=== PATIENT | female | born 1945 | race Caucasian/White ===

== ENCOUNTER → 2017-11-19 | Outpatient (CLI) | payer OTHER ==
[~2017-11-19] MED LIST: CARVEDILOL12.5 MG PO; CENTRUM SILVER1 EAC4 PO; COUMADIN 1MG TAB1 M1 PO; LASIX 20 MG TAB20 MG PO; LIPITOR 20 MG T20 M1 PO; VITAMIN D5000 UNIT PO
--- NOTE | ~2017-11-19 | EKG ---
[place] [address] [facility] [place] [address] ELECTROCARDIOGRAM REPORT Name: INDER PAIGE [id number]: 11/19/17 Attend Phys: Matt Silva MD Discharge: Date of : 41 Report #: [id number] THIS REPORT FOR: //name// [facility] Test Date: 2017-11-19 Test Time: 07:45:48 Pat Name: INDER RUIZ Department: Room: Gender: F [employer] St[employer]: MOISÉS : 1945 Requested By: Matt Silva Order Number: [id number] MD: Jaden Forrest Measurements Intervals [place] Rate: 74 P: -4 [place]: 185 QRS: -1 QRSD: 84 T: 4 QT: 403 QTc: 448 Interpretive Statements Sinus rhythm Borderline T abnormalities, inferior leads Baseline wander in lead(s) V1,V3 No previous ECG available for comparison Electronically Signed On 11-19-2017 8:24:22 CDT by Jaden Forrest [email or web address] <ELECTRONICALLY SIGNED> By: Jaden Forrest MD, [facility] 11/19/1724 Jaden Forrest MD, [facility] /EPI
[2017-11-19 08:56] LABS: INR 1.2
== END | disposition home or self-care (01) ==
LOC: LITH 07:13
PROVIDERS: Specialist
DX: N20.0 Calculus of kidney (principal); Z98.890 Other specified postprocedural states; Z90.710 Acquired absence of both cervix and uterus; Z98.41 Cataract extraction status, right eye; Z98.42 Cataract extraction status, left eye; I10 Essential (primary) hypertension; E78.00 Pure hypercholesterolemia, unspecified